=== PATIENT | male | born 1970 | race Two or more races ===

== ENCOUNTER 2016-10-09 11:55 | Emergency (ER) | payer MEDICAID ==
[~2016-10-09] VITALS: Ht 170.2 cm; Wt 94.3 kg
[2016-10-09 13:39] LABS: Basophils # (auto) 0 uL; Basophils % (auto) 0.2 % (0.0-2.0); Eosinophils # (auto) 0.3 uL; Eosinophils % (auto) 3.1 % (0.0-7.0); Hematocrit 45.1 % (41.0-53.0); Hemoglobin 15.3 g/dL (13.5-17.5); Lymphocytes # (auto) 2.5 uL; Lymphocytes % (auto) 27.3 % (10.0-50.0); Mean Corpuscular Hemoglobin 28.9 pg (28.0-32.0); Mean Corpuscular Hgb Conc. 33.9 g/dL (32.0-36.0); Mean Corpuscular Volume 85.2 fL (80.0-100.0); Mean Platelet Volume 7.9 fL (7.4-10.4); Monocytes # (auto) 0.5 uL; Monocytes % (auto) 5.8 % (0.0-12.0); Neutrophils # (auto) 5.8 uL; Neutrophils % (auto) 63.6 % (37.0-80.0); Platelet Count (auto) 274 10^3/uL (140-450); Red Cell Distribution Width 12.9 % (11.6-16.0); White Blood Cell 9.1 10^3/uL (4.4-10.8)
[2016-10-09 14:13] LABS: BUN/Creatinine Ratio 13.8; Bilirubin, Total 0.5 mg/dL (0.2-1.0); Calcium 8.8 mg/dL (8.5-10.1); Potassium 4.1 mmol/L (3.5-5.1); Total Protein 8.1 g/dL (6.4-8.2)
[2016-10-09 16:25] LABS: Urine RBC None Seen /hpf (0 - 3)
[2016-10-09 17:11] VITALS: BP 132/88
[2016-10-09 17:14] LABS: Urine Bilirubin Negative (Negative); Urine Blood Negative /uL (Negative); Urine Color Yellow (Yellow); Urine Glucose Normal (Normal); Urine Ketone Negative (Negative); Urine Nitrite Negative (Negative); Urine Urobilinogen Normal (Negative)
== END 2016-10-09 18:36 | disposition home or self-care (01) ==
LOC: ER 11:55
DX: K64.9 Unspecified hemorrhoids (principal); F17.210 Nicotine dependence, cigarettes, uncomplicated; K42.9 Umbilical hernia without obstruction or gangrene
CPT/HCPCS: 36415; 80053; 81001; 85025

== ENCOUNTER 2017-07-30 16:36 | Emergency (ER) | payer MEDICAID ==
[~2017-07-30] VITALS: Ht 172.7 cm; Wt 86.2 kg
[2017-07-30 18:58] LABS: Basophils # (auto) 0 uL; Basophils % (auto) 0.3 % (0.0-2.0); Eosinophils # (auto) 0.1 uL; Eosinophils % (auto) 1.1 % (0.0-7.0); Hematocrit 47.8 % (41.0-53.0); Hemoglobin 16.2 g/dL (13.5-17.5); Lymphocytes # (auto) 2.6 uL; Lymphocytes % (auto) 25.7 % (10.0-50.0); Mean Corpuscular Hemoglobin 29.7 pg (28.0-32.0); Mean Corpuscular Hgb Conc. 33.8 g/dL (32.0-36.0); Mean Corpuscular Volume 87.7 fL (80.0-100.0); Monocytes % (auto) 9.5 % (0.0-12.0); Neutrophils # (auto) 6.4 uL; Neutrophils % (auto) 63.4 % (37.0-80.0); Nucleated Red Blood Cells % 0.1 %; Platelet Count (auto) 337 10^3/uL (140-450); Red Blood Cells 5.46 10^6/uL (4.5-5.90); Red Cell Distribution Width 12.7 % (11.8-14.3); White Blood Cell 10.1 10^3/uL (4.4-10.8)
[2017-07-30 19:18] LABS: Potassium 3.9 mmol/L (3.5-5.1)
[2017-07-30 19:19] LABS: BUN/Creatinine Ratio 14.9; Calcium 8.9 mg/dL (8.5-10.1); Total Protein 8.2 g/dL (6.4-8.2)
[2017-07-30 19:20] LABS: Albumin 3.6 g/dL (3.4-5.0)
[2017-07-30] MEDS ORDERED: DEXAMETHASONE SOD PHOS 10MG/1ML VIAL INJ IV ONE (20:15)
[2017-07-30] MEDS ORDERED: MANNITOL 20% SOLN 100 gm/500ml 250 ML IV ONE (20:15)
[2017-07-30] MEDS ORDERED: HYDROcodone-ACET 10/325MG TAB PO ONE (20:15)
[2017-07-30] MEDS ORDERED: MANNITOL 20 % (20GM/100ML) 500 ML IV ONE ×2 (20:40→22:06)
[2017-07-30] MEDS ORDERED: ALUM & MAG HYDROX-SIMETH LIQ(MAALOX) 30 ML PO ONE (21:15)
[2017-07-30] MEDS ORDERED: LEVETIRACETAM 500 MG TAB PO ONE (23:30)
[2017-07-30] MEDS ORDERED: HYDROcodone-ACET 5/325MG TAB PO ONE (23:30)
[2017-07-31 00:08] VITALS: BP 115/86
== END 2017-07-31 00:54 | disposition short-term general hospital (02) ==
LOC: ER 16:36
DX: S06.2X0A Diffuse traumatic brain injury without loss of consciousness, initial encounter (principal); F17.210 Nicotine dependence, cigarettes, uncomplicated; X58.XXXA Exposure to other specified factors, initial encounter; Y93.39 Activity, other involving climbing, rappelling and jumping off; Y92.89 Other specified places as the place of occurrence of the external cause; Y99.8 Other external cause status
CPT/HCPCS: 36415; 51702; 70450; 80053; 85025; 96365; 96375; 99285; J1100; 93005